=== PATIENT | female | born 1945 | race Caucasian/White ===

== ENCOUNTER 2021-03-20 13:00 | Outpatient (RCR) | payer MEDICARE, SELFPAY | END 2021-04-21 08:00 | disposition home or self-care (01) | LOC: HO.WCC 13:00 | PROVIDERS: PCP Internal Medicine; Referring Provider Nurse Practitioner Primary Care; Visit Provider Physician Assistant | DX: S81.811D Laceration without foreign body, right lower leg, subsequent encounter (principal); I87.2 Venous insufficiency (chronic) (peripheral) | CPT/HCPCS: 97597; 99202; 99212 ==

== ENCOUNTER 2024-10-01 11:28 | Outpatient (RCR) | payer MEDICARE, SELFPAY | END 2024-11-15 15:27 | disposition home or self-care (01) | LOC: HO.WCC 11:28 | PROVIDERS: PCP Internal Medicine; Visit Provider Surgery | DX: S81.812D Laceration without foreign body, left lower leg, subsequent encounter (principal); X58.XXXD Exposure to other specified factors, subsequent encounter | CPT/HCPCS: 11042; 99212 ==